=== PATIENT | male | born 1985 | race Caucasian/White ===

== ENCOUNTER 2018-08-29 12:27 | Emergency (ER) | payer OTHER ==
[~2018-08-29] VITALS: Ht 190.5 cm; Wt 95.1 kg
[2018-08-29 12:38] VITALS: BP 120/80
[2018-08-29] MEDS ORDERED: LIDOCAINE-MPF 1%, 5ML ONE (12:46)
[2018-08-29] MEDS ORDERED: DIPH,PERTUSS(ACELL),TET VAC/PF 0.5 ML IM-VACC ONE ×2 (12:52→13:00)
[2018-08-29] MEDS ORDERED: LIDOCAINE-MPF 1%, 5ML INFIL ONE (13:00)
== END 2018-08-29 13:19 | disposition home or self-care (01) ==
LOC: ED 13:08
DX: L03.221 Cellulitis of neck (principal)
CPT/HCPCS: 10060; 90471; 90715

== ENCOUNTER 2018-08-30 11:16 | Emergency (ER) | payer OTHER ==
[2018-08-30 11:33] VITALS: BP 109/66
--- NOTE | 2018-08-30 11:36 | NUR ---
right back of neck with small scab, ojhny wound erythema, no drainage
--- NOTE | 2018-08-30 11:55 | NUR ---
Discharge instructions discussed with patient including when to return to emergency department, verbalizes understanding. Patient ambulates with steady gait to discharge desk in no acute distress.
== END 2018-08-30 11:58 | disposition home or self-care (01) ==
LOC: ED 11:52
DX: Z48.01 Encounter for change or removal of surgical wound dressing (principal)
CPT/HCPCS: 99281

== ENCOUNTER 2019-10-28 16:58 | Emergency (ER) | payer OTHER ==
[~2019-10-28] VITALS: Ht 190.5 cm; Wt 93.2 kg
[2019-10-28 17:04] VITALS: BP 119/87
--- NOTE | 2019-10-28 18:08 | NUR ---
In to assess pt. pt stated that the MD had just seen him and stated he was going to be discharged. pt expressed he was told he had a sinus infections. Denies needs from this RN.
--- NOTE | 2019-10-28 18:21 | NUR ---
Patient given discharge instructions and they have confirmed that they understand the instructions. Patient ambulatory with steady gait. pt left ED in no distress.
== END 2019-10-28 18:23 | disposition home or self-care (01) ==
LOC: ED 18:14
DX: J30.9 Allergic rhinitis, unspecified (principal); R09.81 Nasal congestion
CPT/HCPCS: 99282